=== PATIENT | male | born 1945 | race Caucasian/White ===

== ENCOUNTER 2017-07-22 12:55 | Emergency (ER) | payer OTHER ==
[2017-07-22] MEDS: DEXAMETHASONE SOD PHOS 4 MG/ML VIAL IM (13:41)
== END 2017-07-22 13:46 | disposition home or self-care (01) ==
LOC: PHEFT 12:55
DX: M54.41 Lumbago with sciatica, right side (principal); I10 Essential (primary) hypertension; E78.00 Pure hypercholesterolemia, unspecified; E11.9 Type 2 diabetes mellitus without complications; Z95.1 Presence of aortocoronary bypass graft; Z88.8 Allergy status to other drugs, medicaments and biological substances; Z79.4 Long term (current) use of insulin; Z79.84 Long term (current) use of oral hypoglycemic drugs; Z79.899 Other long term (current) drug therapy
CPT/HCPCS: 96372; 99283-25